=== PATIENT | male | born 1965 | race Caucasian/White ===

== ENCOUNTER → 2021-04-04 | Outpatient (CLI) | payer OTHER ==
[~2021-04-04] MED LIST: ALBIPROI INH; BIAXIN; COENZYME Q-1030 MG PO; CYCL10; CYCL10 PO; GABA100; LANS30EC; META400; MILK THISTLE140 MG PO; OXYACE5T PO; OXYACE7.5T; OXYACE7.5T PO; RANI150 PO; SPACER IH; Vitamin B Comple1 EA PO
[2021-04-04 13:36] LABS: Stool Occult Bld Immuno 1 Positive (NEGATIVE)
== END | disposition home or self-care (01) ==
LOC: LAB 08:00 → LAB SHORT 08:00
PROVIDERS: Family Medicine
DX: R63.4 Abnormal weight loss (principal); R19.7 Diarrhea, unspecified; R53.83 Other fatigue
CPT/HCPCS: 82656; G0328

== ENCOUNTER 2021-05-12 05:59 | Day surgery (SDC) | payer OTHER ==
[~2021-05-12] VITALS: Ht 198.1 cm; Wt 76.8 kg
--- NOTE | 2021-05-12 07:05 | NUR ---
Ambulatory in Day Surgery. History, Chart, Medications and Allergies reviewed before start of procedure. Lungs clear T/O to Auscultation. Patient confirms NPO status and agrees with scheduled surgery. Pre-Op teaching done. Pt verbalizes understanding. Patient States Post-Procedure ride home has been arranged.
--- NOTE | 2021-05-12 10:52 | NUR ---
Discharge instructions reviewed with patient. Patient verbalizes understanding. Copy given to patient to take home. Patient up to Ambulate independently. Gait steady. Discharged via wheelchair to private car for ride home WITH [employer]
== END 2021-05-13 00:18 | disposition home or self-care (01) ==
LOC: ORSCMMR 05:59 → ORD 07:30 → ORSCMMR 07:30
PROVIDERS: Surgery
PROC: 8E0W4CZ Robotic Assisted Procedure of Trunk Region, Percutaneous Endoscopic Approach (ICD-10-PCS; principal; 2021-05-12 07:30)
PROC: 0YU54JZ Supplement Right Inguinal Region with Synthetic Substitute, Percutaneous Endoscopic Approach (ICD-10-PCS; principal; 2021-05-12 07:30)
DX: K40.90 Unilateral inguinal hernia, without obstruction or gangrene, not specified as recurrent (principal); F17.210 Nicotine dependence, cigarettes, uncomplicated; J44.9 Chronic obstructive pulmonary disease, unspecified
CPT/HCPCS: 49650; S2900; A9270; C1781; J0690; J1100; J1885; J2405; J2704; J3010; J7120

== ENCOUNTER 2021-08-01 08:28 | Day surgery (SDC) | payer OTHER ==
[~2021-08-01] VITALS: Ht 198.1 cm; Wt 78.5 kg
--- NOTE | 2021-08-01 10:22 | NUR ---
08/01/21 1022 Taya Valle 5ML NORMAL SALINE W/INDIGO CARMINE USED TO ELEVATE LARGE ASCENDING POLYP
== END 2021-08-01 11:34 | disposition home or self-care (01) ==
LOC: ORSCSDS 08:28
PROVIDERS: Student in an Organized Health Care Education/Training Program
PROC: 0DBK8ZX Excision of Ascending Colon, Via Natural or Artificial Opening Endoscopic, Diagnostic (ICD-10-PCS; principal; 2021-08-01 09:45)
PROC: 3E0H8KZ Introduction of Other Diagnostic Substance into Lower GI, Via Natural or Artificial Opening Endoscopic (ICD-10-PCS; principal; 2021-08-01 09:45)
PROC: 0DBM8ZX Excision of Descending Colon, Via Natural or Artificial Opening Endoscopic, Diagnostic (ICD-10-PCS; principal; 2021-08-01 09:45)
DX: R19.5 Other fecal abnormalities (principal); K92.1 Melena; Z86.010 Personal history of colon polyps; K63.5 Polyp of colon; D12.2 Benign neoplasm of ascending colon; K64.4 Residual hemorrhoidal skin tags; K57.30 Diverticulosis of large intestine without perforation or abscess without bleeding; K64.8 Other hemorrhoids; F17.210 Nicotine dependence, cigarettes, uncomplicated; Z79.899 Other long term (current) drug therapy
CPT/HCPCS: 88305; J2704; J7120

== ENCOUNTER → 2023-01-10 | Outpatient (CLI) | payer OTHER ==
[2023-01-10 14:03] LABS: Adenovirus F 40/41 Not Detected (NOT DETECT); Astrovirus Not Detected (NOT DETECT); Campylobacter Sp Not Detected (NOT DETECT); Cryptosporidium Not Detected (NOT DETECT); Cyclospora Cayetanensis Not Detected (NOT DETECT); E. Coli O157 Not Detected (NOT DETECT); Entamoeba Histolytica Not Detected (NOT DETECT); Enteroaggregative E. coli-EAEC Not Detected (NOT DETECT); Enteropathogenic E. coli-EPEC Not Detected (NOT DETECT); Enterotoxigenic E. coli-ETEC Not Detected (NOT DETECT); Giardia Lamblia Not Detected (NOT DETECT); Norovirus GI/GII Not Detected (NOT DETECT); Plesiomonas Shigelloides Not Detected (NOT DETECT); Rotavirus A Not Detected (NOT DETECT); Salmonella Sp Not Detected (NOT DETECT); Sapovirus Not Detected (NOT DETECT); Shiga Toxin-prod E. coli-STEC Not Detected (NOT DETECT); Shigella/Enteroin E. coli-EIEC Not Detected (NOT DETECT); Vibrio Cholerae Not Detected (NOT DETECT); Vibrio Sp Not Detected (NOT DETECT); Yersinia Enterocolitica Not Detected (NOT DETECT)
== END | disposition home or self-care (01) ==
LOC: LAB 11:58 → LAB SHORT 11:58
PROVIDERS: Family Medicine
DX: K52.9 Noninfective gastroenteritis and colitis, unspecified (principal)
CPT/HCPCS: 83993; 87507

== ENCOUNTER → 2023-12-27 | Outpatient (CLI) | payer OTHER ==
[2023-12-27 14:16] LABS: Adenovirus F 40/41 Not Detected (NOT DETECT); Astrovirus Not Detected (NOT DETECT); Campylobacter Sp Not Detected (NOT DETECT); Cryptosporidium Not Detected (NOT DETECT); Cyclospora Cayetanensis Not Detected (NOT DETECT); E. Coli O157 Not Detected (NOT DETECT); Entamoeba Histolytica Not Detected (NOT DETECT); Enteroaggregative E. coli-EAEC Not Detected (NOT DETECT); Enteropathogenic E. coli-EPEC Detected (NOT DETECT); Enterotoxigenic E. coli-ETEC Not Detected (NOT DETECT); Giardia Lamblia Not Detected (NOT DETECT); Norovirus GI/GII Not Detected (NOT DETECT); Plesiomonas Shigelloides Not Detected (NOT DETECT); Rotavirus A Not Detected (NOT DETECT); Salmonella Sp Not Detected (NOT DETECT); Sapovirus Not Detected (NOT DETECT); Shiga Toxin-prod E. coli-STEC Not Detected (NOT DETECT); Shigella/Enteroin E. coli-EIEC Not Detected (NOT DETECT); Vibrio Cholerae Not Detected (NOT DETECT); Vibrio Sp Not Detected (NOT DETECT); Yersinia Enterocolitica Not Detected (NOT DETECT)
[2024-01-01 12:09] LABS: CALPROTECTIN,FECAL 9 ug/g (<=49)
== END | disposition home or self-care (01) ==
LOC: LAB SHORT 09:00
PROVIDERS: Family Medicine
DX: K52.9 Noninfective gastroenteritis and colitis, unspecified (principal)
CPT/HCPCS: 83993; 87507

== ENCOUNTER → 2024-07-30 | Outpatient (CLI) | payer OTHER | END | disposition home or self-care (01) | LOC: LAB SHORT 11:35 → LAB 11:35 | DX: M25.531 Pain in right wrist (principal) | CPT/HCPCS: 84550 ==